=== PATIENT | male | born 1940 | race Caucasian/White ===

== ENCOUNTER 2019-10-24 17:34 | Observation (INO) | payer MEDICARE, BC ==
[~2019-10-24] VITALS: Ht 180.3 cm; Wt 98.0 kg
[~2019-10-24 17:34] MED LIST: AMLO1CAP23 PO; ASPI-1265 PO; ATOR20TA PO; CETI-1 PO; CHOL400C2 PO; IBUP-24 PO; TIM0.5OS OP; [UNRECOGNIZED DRUG - CODE] PO
[2019-10-24 18:08] LABS: BASOPHILS % (AUTO) 0.3 % (0-1); EOSINOPHILS # (AUTO) 0.1 X10'3 (0-0.9); EOSINOPHILS % (AUTO) 2.4 % (0-6); HEMATOCRIT 42.9 % (42.0-52.0); HEMOGLOBIN 14.7 g/dl (14.0-17.9); LYMPHOCYTES # (AUTO) 0.8 X10'3 (1.1-4.8); LYMPHOCYTES % (AUTO) 13.1 % (21-51); MEAN CORPUSCULAR HEMOGLOBIN 32.2 PG (27.0-31.0); MEAN CORPUSCULAR HGB CONC 34.3 g/dL (33.0-36.5); MEAN CORPUSCULAR VOLUME 93.9 FL (78-98); MEAN PLATELET VOLUME 8.7 FL (7.4-10.4); MONOCYTES # (AUTO) 0.7 X10'3 (0-0.9); MONOCYTES % (AUTO) 11.7 % (2-12); NEUTROPHILS # (AUTO) 4.2 X10'3 (1.8-7.7); NEUTROPHILS % (AUTO) 72.5 % (42-75); PLATELET COUNT 151 X10'3 (140-440); RED BLOOD COUNT 4.56 X10'6 (4.70-6.10); RED CELL DISTRIBUTION WIDTH 13.2 % (11.5-14.5); WHITE BLOOD COUNT 5.8 X10'3 (4.5-11.0)
[2019-10-24 18:14] LABS: ALANINE AMINOTRANSFERASE 35 U/L (12-78); ALBUMIN 3.8 G/DL (3.4-5.0); ALBUMIN/GLOBULIN RATIO 0.9 (1.1-1.5); ALKALINE PHOSPHATASE 107 IU/L (46-116); ANION GAP 9 (8-16); ASPARTATE AMINO TRANSFERASE 27 U/L (10-37); BILIRUBIN,TOTAL 0.4 MG/DL (0.1-1.0); BLOOD UREA NITROGEN 18 MG/DL (7-18); BUN/CREATININE RATIO 10.4 (5.4-32.0); CHLORIDE 102 MMOL/L (99-107); CREATININE 1.73 MG/DL (0.60-1.10); GLUCOSE 141 MG/DL (70-104); POTASSIUM 3.8 MMOL/L (3.5-5.1); SODIUM 139 MMOL/L (135-145); TOTAL CARBON DIOXIDE 28.2 MMOL/L (24-32); TOTAL PROTEIN 7.9 G/DL (6.4-8.2); eGFR 38 ML/MIN
[2019-10-24] MEDS ORDERED: famotidine 20mg tablet PO ONE (19:50)
[2019-10-24] MEDS ORDERED: LIDOcaine Viscous 15ml cup MM ONE (19:50)
[2019-10-24] MEDS ORDERED: mag hydrox/Alum hydrox/simeth 30ml oral suspension PO ONE (19:50)
[2019-10-24] MEDS ORDERED: famotidine 10mg tablet PO ONE (20:00)
--- NOTE | 2019-10-24 20:38 | NUR ---
PT GIVEN GI COCKTAIL FOR PAIN. UNABLE TO GIVE NITRO UNTIL PT GETS AN IV. PT IS A VERY DIFFICULT IV START. YOAN BERNARD AND THEODORE MILTON ATTEMPTING TO START IV AT THIS TIME.
[2019-10-24] MEDS: nitroGLYCERIN 0.4mg SUBLingual tab SL PRN ×2 (20:47→21:50)
--- NOTE | 2019-10-24 20:49 | NUR ---
ULTRASOUND AT BEDSIDE
--- NOTE | 2019-10-24 20:53 | NUR ---
PT STATES THE GI COCKTAIL HELPED "A LITTLE, MY PAIN IS A 7". HIS PAIN WAS A 9. HIS LAST MEAL WAS AROUND 12:30
[2019-10-24] MEDS ORDERED: TICA90TA2 PO (21:48)
[2019-10-24] MEDS ORDERED: MONT10TA24 PO (21:48)
[2019-10-24] MEDS ORDERED: METO25TA6 PO (21:48)
[2019-10-24] MEDS ORDERED: IPRA30SP NAS (21:48)
[2019-10-24] MEDS ORDERED: APIX5TAB3 PO (21:48)
[2019-10-24] MEDS ORDERED: TIMO5DRO32 EACHEYE (21:48)
[2019-10-24] MEDS ORDERED: ATOR-2 PO (21:48)
[2019-10-24] MEDS ORDERED: magnesium 2GM in 50ml NS 50 ML IV PRN (22:00)
[2019-10-24] MEDS ORDERED: magnesium 4gm in 100ml NS 100 ML IV PRN (22:00)
[2019-10-24] MEDS ORDERED: magnesium Cl slow-release 64mg tablet PO PRN (22:00)
[2019-10-24] MEDS ORDERED: potassium CL 10mEq/100ml bag 100 ML IV PRN ×2 (22:00)
[2019-10-24] MEDS ORDERED: potassium Cl 20 mEq SR tablet PO PRN ×2 (22:00)
[2019-10-24] MEDS ORDERED: ondansetron/PF 4mg/2ml inj IV PRN (22:00)
--- NOTE | 2019-10-24 22:29 | NUR ---
REPORT HAS BEEN CALLED, THE ROOM IS NOT CLEAN. RN UPSTAIRS WILL CALL WHEN ROOM IS READY
[2019-10-24] MEDS: normal saline 1000ml 1,000 ML IV SCH (22:31)
[2019-10-24] MEDS ORDERED: mag hydrox/Alum hydrox/simeth 30ml oral suspension PO PRN (23:00)
[2019-10-24] MEDS ORDERED: famotidine 10mg tablet PO PRN (23:00)
[2019-10-24] MEDS ORDERED: LIDOcaine Viscous 15ml cup TP PRN ×2 (23:00→23:49)
[2019-10-24] MEDS: pantoprazole 40 MG vial IV SCH (23:53)
[2019-10-25 00:15] VITALS: BP 112/64
--- NOTE | 2019-10-25 06:12 | NUR ---
Problems reprioritized. Patient report given, questions answered & plan of care reviewed with YOAN Lee. Addendum: 10/25/19 at 0612 by Amanda Apple RN Amended: Links added.
--- NOTE | 2019-10-25 06:30 | NUR ---
Patient in room [facility]. I have received report from Amanda MILTON and had the opportunity to ask questions and assume patient care.
[2019-10-25 07:17] LABS: BASOPHILS % (AUTO) 0.1 % (0-1); EOSINOPHILS % (AUTO) 0.3 % (0-6); HEMATOCRIT 35.7 % (42.0-52.0); HEMOGLOBIN 12.4 g/dl (14.0-17.9); LYMPHOCYTES % (AUTO) 15.7 % (21-51); MEAN CORPUSCULAR HEMOGLOBIN 32.5 PG (27.0-31.0); MEAN CORPUSCULAR HGB CONC 34.7 g/dL (33.0-36.5); MEAN CORPUSCULAR VOLUME 93.8 FL (78-98); MEAN PLATELET VOLUME 8.7 FL (7.4-10.4); MONOCYTES # (AUTO) 0.8 X10'3 (0-0.9); NEUTROPHILS # (AUTO) 4.2 X10'3 (1.8-7.7); NEUTROPHILS % (AUTO) 69.9 % (42-75); PLATELET COUNT 111 X10'3 (140-440); RED BLOOD COUNT 3.81 X10'6 (4.70-6.10); RED CELL DISTRIBUTION WIDTH 13.2 % (11.5-14.5); WHITE BLOOD COUNT 6.1 X10'3 (4.5-11.0)
[2019-10-25 07:36] VITALS: BP 130/70
[2019-10-25] MEDS ORDERED: apixaban 5mg tablet PO SCH (08:00)
[2019-10-25] MEDS ORDERED: cholecalciferol (vitamin D) 400 unit tablet PO SCH (08:00)
[2019-10-25] MEDS ORDERED: metoprolol tartrate 25mg tablet PO SCH (08:00)
[2019-10-25] MEDS ORDERED: K and/or MAG REPLACEMENT MC SCH (08:00)
[2019-10-25] MEDS ORDERED: timolol 0.5% ophthalmic solution 5ml bottle EACHEYE SCH (08:00)
[2019-10-25] MEDS ORDERED: ticagrelor 90mg tablet PO SCH (08:00)
[2019-10-25] MEDS ORDERED: montelukast 10mg tablet PO SCH (08:00)
[2019-10-25] MEDS: pantoprazole 40 MG vial IV SCH (08:21)
[2019-10-25] MEDS: normal saline 1000ml 1,000 ML IV SCH (08:28)
[2019-10-25 08:38] LABS: ALBUMIN 2.9 G/DL (3.4-5.0); BLOOD UREA NITROGEN 17 MG/DL (7-18); BUN/CREATININE RATIO 13.3 (5.4-32.0); CALCIUM 8.2 MG/DL (8.5-10.1); CHLORIDE 105 MMOL/L (99-107); CHOL/HDL RATIO 2.7 (0.00-4.99); CHOLESTEROL 81 MG/DL (0-200); CREATININE 1.28 MG/DL (0.60-1.10); GLUCOSE 98 MG/DL (70-104); HDL CHOLESTEROL 30 MG/DL (35-60); LDL CHOLESTEROL 44 MG/DL (50-100); MAGNESIUM 1.8 MG/DL (1.5-2.4); POTASSIUM 3.8 MMOL/L (3.5-5.1); TOTAL CARBON DIOXIDE 22.7 MMOL/L (24-32); TRIGLYCERIDES 80 MG/DL (20-135); eGFR 54 ML/MIN
[2019-10-25 08:39] LABS: ANION GAP 9 (8-16); SODIUM 137 MMOL/L (135-145)
[2019-10-25 11:00] VITALS: BP 110/64
--- NOTE | 2019-10-25 11:40 | NUR ---
Patient discharge educated at his time. Patient did not leave with any new medications, IV was taken out at this time minimal bleeding note. Canula was whole and intact upon removal. Patient discharge and stated he had all of his things. Patient walked out on his own with tech. Patient transported home by family in private care. Patient was encouraged to return to ED if chest pain returns.
[2019-10-25] MEDS ORDERED: atorvastatin 20mg tablet PO SCH (21:00)
--- NOTE | 2019-10-26 11:32 | NUR ---
Case Management DC follow up: spoke w/pt via telephone: Denies cp, SOB, resp distress, NV, dizziness all issues r/t cardiac episodes. pt believes it is GI related as inferred in hospital/intermittent pain in abd,under rib cage which resolves after taking GI cocktail he received at hospital. pt has appt today (10/26/2019) w/pcp/Oralia to discuss possible gallbladder removal. verbalized understanding of medications and why prescribed. pt has follow up appt w/Dr Isbell in 2 weeks. All needs met, questions answered at DC. pt compliant/medications, follow ups. No further questions at this time.
== END 2019-10-25 11:57 | disposition home or self-care (01) ==
LOC: ER 17:34 → ED HOLD 22:24 → SUR 3N 22:45
PROVIDERS: ADMIT Internal Medicine; ATTEND Internal Medicine
DX: R07.89 Other chest pain (principal); N17.9 Acute kidney failure, unspecified; I25.10 Atherosclerotic heart disease of native coronary artery without angina pectoris; I10 Essential (primary) hypertension; I25.2 Old myocardial infarction; E78.5 Hyperlipidemia, unspecified; I48.20 Chronic atrial fibrillation, unspecified; Z85.46 Personal history of malignant neoplasm of prostate; Z87.19 Personal history of other diseases of the digestive system; Z95.1 Presence of aortocoronary bypass graft; Z95.5 Presence of coronary angioplasty implant and graft; Z90.49 Acquired absence of other specified parts of digestive tract; Z98.49 Cataract extraction status, unspecified eye; Z90.79 Acquired absence of other genital organ(s); Z79.02 Long term (current) use of antithrombotics/antiplatelets; Z79.01 Long term (current) use of anticoagulants; Z79.899 Other long term (current) drug therapy
CPT/HCPCS: 36415; 71045; 76700; 80048; 80053; 80061; 83735; 84484; 85025; 87081; 93005; 93306; 96374; 96376; 99284; C9113; G0378

== ENCOUNTER 2019-11-14 10:38 | Emergency (ER) | payer MEDICARE, BC ==
[~2019-11-14] VITALS: Ht 180.3 cm; Wt 94.5 kg
[~2019-11-14 10:38] MED LIST changes: -AMLO1CAP23 PO; +APIX5TAB3 PO; -ASPI-1265 PO; +ATOR-2 PO; -ATOR20TA PO; -CETI-1 PO; -IBUP-24 PO; +IPRA30SP NAS; +METO25TA6 PO; +MONT10TA26 PO; +TICA90TA2 PO; -TIM0.5OS OP; +TIMO5DRO32 EACHEYE; -[UNRECOGNIZED DRUG - CODE] PO
--- NOTE | 2019-11-14 12:41 | NUR ---
PT TO CT VIA WHEELCHAIR
[2019-11-14 12:42] LABS: HEMOGLOBIN 11.4 g/dl (14.0-17.9); NEUTROPHILS # (AUTO) 4.7 X10'3 (1.8-7.7); PLATELET COUNT 157 X10'3 (140-440); WHITE BLOOD COUNT 6.2 X10'3 (4.5-11.0)
[2019-11-14 12:43] LABS: BASOPHILS % (AUTO) 0.4 % (0-1); EOSINOPHILS # (AUTO) 0.1 X10'3 (0-0.9); EOSINOPHILS % (AUTO) 1.4 % (0-6); HEMATOCRIT 32.8 % (42.0-52.0); LYMPHOCYTES # (AUTO) 0.8 X10'3 (1.1-4.8); LYMPHOCYTES % (AUTO) 12.3 % (21-51); MEAN CORPUSCULAR HEMOGLOBIN 32.3 PG (27.0-31.0); MEAN CORPUSCULAR HGB CONC 34.7 g/dL (33.0-36.5); MEAN CORPUSCULAR VOLUME 93.2 FL (78-98); MEAN PLATELET VOLUME 9.1 FL (7.4-10.4); MONOCYTES # (AUTO) 0.6 X10'3 (0-0.9); MONOCYTES % (AUTO) 10.1 % (2-12); NEUTROPHILS % (AUTO) 75.8 % (42-75); RED BLOOD COUNT 3.52 X10'6 (4.70-6.10); RED CELL DISTRIBUTION WIDTH 13.4 % (11.5-14.5)
[2019-11-14 13:01] LABS: ALANINE AMINOTRANSFERASE 30 U/L (12-78); ALBUMIN 3.1 G/DL (3.4-5.0); ALBUMIN/GLOBULIN RATIO 0.9 (1.1-1.5); ALKALINE PHOSPHATASE 87 IU/L (46-116); ANION GAP 7 (8-16); ASPARTATE AMINO TRANSFERASE 27 U/L (10-37); BILIRUBIN,TOTAL 1.2 MG/DL (0.1-1.0); BLOOD UREA NITROGEN 23 MG/DL (7-18); BUN/CREATININE RATIO 16.8 (5.4-32.0); CALCIUM 9.1 MG/DL (8.5-10.1); CHLORIDE 109 MMOL/L (99-107); CREATININE 1.37 MG/DL (0.60-1.10); GLUCOSE 108 MG/DL (70-104); POTASSIUM 4.5 MMOL/L (3.5-5.1); SODIUM 140 MMOL/L (135-145); TOTAL CARBON DIOXIDE 24.3 MMOL/L (24-32); TOTAL PROTEIN 6.6 G/DL (6.4-8.2); TROPONIN I < 0.04 NG/ML (0.0-0.05); eGFR 50 ML/MIN
[2019-11-14 13:02] LABS: ETHANOL < 0.010 GM/DL (0.0-0.010)
--- NOTE | 2019-11-14 13:05 | NUR ---
PER DR EMILY CEE FOR PT TO HAVE WATER.
[2019-11-14 14:44] VITALS: BP 120/77
== END 2019-11-14 14:20 | disposition home or self-care (01) ==
LOC: ER 10:40
DX: S70.11XA Contusion of right thigh, initial encounter (principal); E86.0 Dehydration; R55 Syncope and collapse; R07.89 Other chest pain; I48.91 Unspecified atrial fibrillation; I25.2 Old myocardial infarction; R06.02 Shortness of breath; Z79.01 Long term (current) use of anticoagulants; Z79.899 Other long term (current) drug therapy; X58.XXXA Exposure to other specified factors, initial encounter; Y93.89 Activity, other specified; Y92.89 Other specified places as the place of occurrence of the external cause; Y99.8 Other external cause status
CPT/HCPCS: 36415; 70450; 71045; 80053; 80320; 83605; 84484; 85025; 93005; 99284

== ENCOUNTER 2019-12-14 06:09 | Day surgery (SDC) | payer MEDICARE, BC ==
[2019-12-12 17:25] LABS: ALBUMIN 3.5 G/DL (3.4-5.0); ANION GAP 7 (8-16); BLOOD UREA NITROGEN 20 MG/DL (7-18); BUN/CREATININE RATIO 14.4 (5.4-32.0); CALCIUM 8.7 MG/DL (8.5-10.1); CHLORIDE 109 MMOL/L (99-107); CREATININE 1.39 MG/DL (0.60-1.10); GLUCOSE 98 MG/DL (70-104); POTASSIUM 4.5 MMOL/L (3.5-5.1); SODIUM 142 MMOL/L (135-145); TOTAL CARBON DIOXIDE 26.3 MMOL/L (24-32); eGFR 49 ML/MIN
[2019-12-12 17:26] LABS: BASOPHILS % (AUTO) 0.6 % (0-1); EOSINOPHILS # (AUTO) 0.2 X10'3 (0-0.9); EOSINOPHILS % (AUTO) 5.3 % (0-6); HEMATOCRIT 37.5 % (42.0-52.0); HEMOGLOBIN 12.6 g/dl (14.0-17.9); LYMPHOCYTES # (AUTO) 0.9 X10'3 (1.1-4.8); LYMPHOCYTES % (AUTO) 20.9 % (21-51); MEAN CORPUSCULAR HEMOGLOBIN 32.4 PG (27.0-31.0); MEAN CORPUSCULAR HGB CONC 33.4 g/dL (33.0-36.5); MEAN CORPUSCULAR VOLUME 96.8 FL (78-98); MEAN PLATELET VOLUME 8.7 FL (7.4-10.4); MONOCYTES # (AUTO) 0.5 X10'3 (0-0.9); NEUTROPHILS # (AUTO) 2.5 X10'3 (1.8-7.7); NEUTROPHILS % (AUTO) 60.2 % (42-75); PLATELET COUNT 160 X10'3 (140-440); RED BLOOD COUNT 3.88 X10'6 (4.70-6.10); RED CELL DISTRIBUTION WIDTH 15.3 % (11.5-14.5); WHITE BLOOD COUNT 4.2 X10'3 (4.5-11.0)
[2019-12-12 17:27] LABS: PARTIAL THROMBOPLASTIN TIME 28 SECONDS (22-32)
[2019-12-14] VITALS (12 sets, daily range): BP systolic 107–136; BP diastolic 58–81
[~2019-12-14] VITALS: Ht 180.3 cm; Wt 95.3 kg
[2019-12-14] MEDS ORDERED: normal saline 1000ml 1,000 ML IV SCH (06:25)
[2019-12-14] MEDS ORDERED: fentaNYL/PF 50MCG/1 ML 2ML syringe IV ONE (06:25)
[2019-12-14] MEDS ORDERED: MIDAZolam 1mg/ml 10ml vial IV ONE (06:25)
[2019-12-14] MEDS ORDERED: CLOP75TA15 PO (07:15)
[2019-12-14] MEDS ORDERED: SOTA80TA73 PO (07:17)
[2019-12-14] MEDS ORDERED: ATOR80TA13 PO (07:17)
[2019-12-14] MEDS ORDERED: FLUT16SP2 BOTHNARES (07:19)
== END 2019-12-14 08:30 | disposition home or self-care (01) ==
LOC: SSTAY O 06:09
PROVIDERS: ATTEND Internal Medicine Interventional Cardiology
DX: I48.91 Unspecified atrial fibrillation (principal); I12.9 Hypertensive chronic kidney disease with stage 1 through stage 4 chronic kidney disease, or unspecified chronic kidney disease; N18.9 Chronic kidney disease, unspecified; I25.10 Atherosclerotic heart disease of native coronary artery without angina pectoris; Z95.1 Presence of aortocoronary bypass graft; Z79.01 Long term (current) use of anticoagulants; Z79.899 Other long term (current) drug therapy
CPT/HCPCS: 36415; 80048; 85025; 85610; 85730; 92960; 93005; 94760; J2250; J3010; J7030